=== PATIENT | female | born 1965 | race Two or more races ===

== ENCOUNTER 2024-06-13 06:15 | Day surgery (SDC) | payer OTHER ==
[2024-06-13] MEDS ORDERED: FLUMAZENIL 0.5 MG/5 ML ML IV STA (08:22)
[2024-06-13] MEDS ORDERED: DIPHENHYDRAMINE HCL 50 MG/ML VIAL 1ML IV ONE (08:30)
[2024-06-13] MEDS ORDERED: MIDAZOLAM HCL 2 MG/2 ML VIAL IV ONE (08:30)
[2024-06-13] MEDS ORDERED: fentaNYL CITRATE 50 MCG/ML AMPUL IV PUSH ONE (08:30)
== END 2024-06-13 09:45 | disposition home or self-care (01) ==
LOC: AMB-ENDOS 06:15
PROVIDERS: ATTEND Colon & Rectal Surgery
DX: Z12.11 Encounter for screening for malignant neoplasm of colon (principal); K64.8 Other hemorrhoids; I10 Essential (primary) hypertension